=== PATIENT | female | born 1965 | race Caucasian/White ===

== ENCOUNTER 2022-01-04 14:06 | Emergency (ER) | payer OTHER ==
[~2022-01-04] VITALS: Ht 165.1 cm; Wt 63.0 kg
[2022-01-04 14:08] VITALS: BP 122/56
== END 2022-01-04 15:37 | disposition left against medical advice (07) ==
LOC: ER 14:06
DX: F41.9 Anxiety disorder, unspecified (principal)
CPT/HCPCS: 99281

== ENCOUNTER 2022-02-26 17:51 | Emergency (ER) | payer MEDICAID, OTHER ==
[~2022-02-26] VITALS: Ht 157.5 cm; Wt 62.0 kg
[2022-02-26 17:55] VITALS: BP 138/85
[2022-02-26] MEDS: LORAZEPAM 1MG TABLET PO ONE (19:02)
== END 2022-02-26 19:30 | disposition home or self-care (01) ==
LOC: ER 17:51
DX: F41.9 Anxiety disorder, unspecified (principal); I10 Essential (primary) hypertension; E78.00 Pure hypercholesterolemia, unspecified; Z13.9 Encounter for screening, unspecified
CPT/HCPCS: 99283

== ENCOUNTER 2022-06-24 13:52 | Emergency (ER) | payer MEDICAID, OTHER ==
[~2022-06-24] VITALS: Ht 170.2 cm; Wt 59.0 kg
[2022-06-24 13:56] VITALS: BP 141/71
[2022-06-24] MEDS ORDERED: P20 MT (15:26)
[2022-06-24] MEDS ORDERED: ALBU6.7H3 INH (15:26)
[2022-06-24] MEDS ORDERED: GUAI600T26 MT (15:28)
== END 2022-06-24 16:11 | disposition home or self-care (01) ==
LOC: ER 13:52
DX: J20.9 Acute bronchitis, unspecified (principal); R06.2 Wheezing; J06.9 Acute upper respiratory infection, unspecified
CPT/HCPCS: 71045; 99283

== ENCOUNTER 2022-08-25 13:50 | Emergency (ER) | payer MEDICAID ==
[~2022-08-25] VITALS: Ht 175.3 cm; Wt 68.0 kg
[~2022-08-25 13:50] MED LIST: ALBU6.7H3 INH; GUAI600T26 MT; P20 MT
[2022-08-25] MEDS ORDERED: OXYCODONE HCL/ACETAMINOPHEN 5/325MG TABLET PO ONE (16:15)
[2022-08-25 17:12] VITALS: BP 128/99
[2022-08-25] MEDS ORDERED: NAP5EC PO (18:23)
== END 2022-08-25 19:12 | disposition home or self-care (01) ==
LOC: ER 14:46
DX: M47.9 Spondylosis, unspecified (principal); M19.90 Unspecified osteoarthritis, unspecified site; S92.911A Unspecified fracture of right toe(s), initial encounter for closed fracture; W18.30XA Fall on same level, unspecified, initial encounter; Y93.89 Activity, other specified; Y92.89 Other specified places as the place of occurrence of the external cause; Y99.8 Other external cause status
CPT/HCPCS: 72128; 72131; 73660; 99284

== ENCOUNTER 2022-09-09 18:19 | Emergency (ER) | payer MEDICAID ==
[~2022-09-09] VITALS: Ht 165.1 cm; Wt 64.0 kg
[~2022-09-09 18:19] MED LIST changes: +NAP5EC PO
[2022-09-09] MEDS ORDERED: IBUPROFEN 600MG TABLET PO ONE (19:00)
[2022-09-09] MEDS ORDERED: IBUP-2029 MT (22:31)
[2022-09-09] MEDS ORDERED: CYCL10TA21 MT (22:31)
[2022-09-09 22:42] VITALS: BP 148/95
== END 2022-09-09 22:43 | disposition home or self-care (01) ==
LOC: ER 18:19
DX: S40.011A Contusion of right shoulder, initial encounter (principal); I10 Essential (primary) hypertension; W01.0XXA Fall on same level from slipping, tripping and stumbling without subsequent striking against object, initial encounter; Y93.89 Activity, other specified; Y92.89 Other specified places as the place of occurrence of the external cause
CPT/HCPCS: 73080; 99283; Z7610

== ENCOUNTER 2022-10-24 19:13 | Emergency (ER) | payer MEDICAID, OTHER ==
[~2022-10-24] VITALS: Ht 170.2 cm; Wt 73.0 kg
[~2022-10-24 19:13] MED LIST changes: +CYCL10TA21 MT; +IBUP-2029 MT
[2022-10-24 19:23] VITALS: BP 169/91
[2022-10-24] MEDS ORDERED: ONDANSETRON HCL 4MG/2ML INJ IV STA (20:17)
[2022-10-24] MEDS ORDERED: SODIUM CHLORIDE 0.9% 1,000 ML IV ONE (20:30)
[2022-10-24 20:56] LABS: BASOPHILS % 0.5 % (0.0-2.0); EOSINOPHILS % 1.5 % (0.0-5.0); HEMATOCRIT. 39.7 % (36.0-48.0); HEMOGLOBIN. 13.4 g/dL (12.0-16.0); MEAN CORPUSCULAR HEMOGLOBIN 30.9 pg (28.0-32.0); MEAN CORPUSCULAR VOLUME 91.3 fL (81.0-99.0); MEAN PLATELET VOLUME 7.8 fl (7.4-10.4); MONOCYTES % 6.4 % (2.0-8.0); NEUTROPHILS % 59.6 % (40.0-76.0); PLATELET 373 x1000/uL (130-400); RED BLOOD CELL COUNT 4.34 mill/uL (4.2-5.4); RED CELL DISTRIBUTION WIDTH 13.4 % (11.6-14.6)
[2022-10-24 21:07] LABS: CHLORIDE 104 mEq/L (98-107)
[2022-10-24] MEDS ORDERED: POTASSIUM CHLORIDE 20MEQ TABLET SR PO ONE (22:00)
== END 2022-10-25 01:38 | disposition home or self-care (01) ==
LOC: ER 19:13
DX: R55 Syncope and collapse (principal); R42 Dizziness and giddiness; F41.9 Anxiety disorder, unspecified; F32.9 Major depressive disorder, single episode, unspecified; E78.00 Pure hypercholesterolemia, unspecified; I10 Essential (primary) hypertension; Z79.899 Other long term (current) drug therapy
CPT/HCPCS: 36415; 70450; 71045; 80053; 83880; 84484; 85025; 93005; 99285; J7030

== ENCOUNTER 2022-12-18 13:27 | Emergency (ER) | payer MEDICAID ==
[~2022-12-18] VITALS: Ht 167.6 cm; Wt 70.0 kg
[2022-12-18 13:47] VITALS: BP 135/83
[2022-12-18] MEDS ORDERED: ACETAMINOPHEN 325MG TABLET PO STA (14:05)
== END 2022-12-18 14:19 | disposition left against medical advice (07) ==
LOC: ER 13:27
DX: K08.89 Other specified disorders of teeth and supporting structures (principal); R68.84 Jaw pain; F41.9 Anxiety disorder, unspecified
CPT/HCPCS: 99283

== ENCOUNTER 2023-04-10 14:49 | Emergency (ER) | payer MEDICAID ==
[~2023-04-10] VITALS: Ht 165.1 cm; Wt 61.0 kg
[2023-04-10 15:00] VITALS: O2SAT 99
[2023-04-10] MEDS ORDERED: ASPIRIN 81MG TABLET PO ONE (15:00)
[2023-04-10 15:39] LABS: BASOPHILS % 0.5 % (0.0-2.0); EOSINOPHILS % 1.5 % (0.0-5.0); HEMATOCRIT. 37.7 % (36.0-48.0); HEMOGLOBIN. 12.4 g/dL (12.0-16.0); LYMPHOCYTES % 32.4 % (20.0-50.0); MEAN CORPUSCULAR HEMOGLOBIN 29.2 pg (28.0-32.0); MEAN CORPUSCULAR HGB CONC 32.8 g/dL (31.0-37.0); MEAN CORPUSCULAR VOLUME 88.9 fL (81.0-99.0); MEAN PLATELET VOLUME 8.1 fl (7.4-10.4); MONOCYTES % 6.9 % (2.0-8.0); NEUTROPHILS % 58.7 % (40.0-76.0); PLATELET 274 x1000/uL (130-400); RED BLOOD CELL COUNT 4.24 mill/uL (4.2-5.4); RED CELL DISTRIBUTION WIDTH 15.1 % (11.6-14.6); WHITE BLOOD COUNT 5.6 x1000/uL (4.5-11.0)
[2023-04-10 16:02] LABS: CHLORIDE 107 mEq/L (98-107); INDEX HEMOLYSI 1 (1-3); INDEX ICTERIC 1 (1-4); INDEX LIPEMIC 1 (1-3); POTASSIUM 4.2 mEq/L (3.5-5.1); SODIUM 139 mEq/L (136-145)
[2023-04-10 16:13] LABS: ALANINE AMINOTRANSFERASE 24 IU/L (13-61); ALBUMIN 3.9 g/dL (3.4-5.0); ASPARTATE AMINOTRANSFERASE 23 IU/L (15-37); BILIRUBIN TOTAL 0.5 mg/dL (0.1-1.0); CALCIUM 9.2 mg/dL (8.5-10.1); CARBON DIOXIDE 29 mEq/L (21-32); GLUCOSE 84 mg/dL (70-105); NT PRO B-TYPE NATRIURETIC PEP 39 pg/mL (5-125); PROTEIN TOTAL 8.1 g/dL (6.0-8.3); TROPONIN I HIGH SENSITIVITY 5 ng/L (<54); UREA NITROGEN BLOOD 12 mg/dL (7-21)
[2023-04-10 17:45] VITALS: BP 134/80; PULSE 68; RESP 16; TEMP 98.5
[2023-04-10 19:29] LABS: TROPONIN I HIGH SENSITIVITY 6 ng/L (<54)
== END 2023-04-10 23:27 | disposition home or self-care (01) ==
LOC: ER 14:49
DX: R07.9 Chest pain, unspecified (principal); F43.9 Reaction to severe stress, unspecified; E78.5 Hyperlipidemia, unspecified; F41.9 Anxiety disorder, unspecified; F32.A Depression, unspecified; Z98.890 Other specified postprocedural states
CPT/HCPCS: 36415; 71045; 80053; 83880; 84484; 85025; 93005; 99285